=== PATIENT | male | born 1970 | race Caucasian/White ===

== ENCOUNTER 2022-02-02 07:20 | Outpatient (CLI) | payer OTHER, SELFPAY ==
[2022-02-02 08:48] LABS: Cortisol Random 0.66 ug/dL
== END 2022-02-02 07:21 | disposition home or self-care (01) ==
DX: R53.83 Other fatigue (principal); R63.5 Abnormal weight gain
CPT/HCPCS: 36415; 82533

== ENCOUNTER 2022-02-04 14:14 | Outpatient (CLI) | payer OTHER, SELFPAY ==
--- NOTE | ~2022-02-04 | CT_ITS ---
EXAMINATION: CT abdomen w con DATE: 02/04/2022 15:28 INDICATION: Weight gain TECHNIQUE: Computed tomography (CT) of the abdomen was performed with 100 CC Omnipaque 300 intravenou s contrast. Automated exposure control and iterative reconstruction technique were employed. Exam dos e: 988.50 mGy-cm total exam DLP. COMPARISON: None. FINDINGS: There is mild discoid atelectasis and/or scarring at the lung bases, greater on the left. Normal heart size. No pericardial or pleural effusion. Diffuse hepatic steatosis. No hepatic space-occupying mass lesion is evident. The gallbladder appears unremarkable. No bile duct or pancreatic duct dilatation. No pancreatic mass lesion or calcification . Normal splenic size. Normal morphology of the adrenal glands. No renal mass lesion or urinary tract calculus or hydroureteronephrosis. The included portion of the urinary bladder is unremarkable except for the fact of the urinary bladder is poorly distended, exten ding almost as high as the umbilicus. The bladder wall does not appear thickened. Normal caliber of the abdominal aorta. No intraperitoneal or retroperitoneal mass lesion or adenopath y or ascites. Included skeletal structures are unremarkable; no suspicious osteolytic or osteoblastic lesions are n oted. IMPRESSION: Essentially bladder Hepatic steatosis Mild discoid atelectasis and/or scarring at the lung bases Reviewed, dictated and finalized at [facility]. Reviewed, dictated and finalized at [facility].
--- NOTE | ~2022-02-04 | MR_ITS ---
EXAMINATION: MR pituitary wo/w con DATE: 02/04/2022 15:13 INDICATION: Weight gain. TECHNIQUE: Magnetic resonance imaging (MRI) of the brain and brainstem was performed without and with 20 mL MultiHance intravenous contrast. COMPARISON: None. FINDINGS: The pituitary is normal in size with height of 3 mm. The infundibulum is at midline. There is no intracranial hemorrhage, acute infarction, or abnormal intracranial mass lesion. The ventricles are normal in size. The paranasal sinuses are clear. The orbits are normal. The mastoid air cells ar e normal. IMPRESSION: 1. Normal brain. Normal pituitary. Reviewed, dictated and finalized at [facility].
[2022-02-04 14:43] LABS: Estimated Glomerular Filt Rate 58
== END 2022-02-04 14:15 | disposition home or self-care (01) ==
DX: R63.5 Abnormal weight gain (principal); K76.0 Fatty (change of) liver, not elsewhere classified
CPT/HCPCS: 70553; 74160; A9577; Q9967

== ENCOUNTER 2022-12-28 09:00 | Outpatient (NON) | payer OTHER, SELFPAY | END 2022-12-28 09:01 | disposition home or self-care (01) | LOC: ANHLAB 12-30 15:39 | PROVIDERS: Visit Provider Surgery Plastic and Reconstructive Surgery | DX: L82.1 Other seborrheic keratosis (principal) | CPT/HCPCS: 88305 ==